=== PATIENT | male | born 1955 | race Two or more races ===

== ENCOUNTER 2022-09-30 06:13 | Day surgery (SDC) | payer OTHER | END 2022-09-30 12:50 | disposition home or self-care (01) | LOC: CIR.AMB 06:13 | PROVIDERS: ATTEND Surgery | DX: D12.2 Benign neoplasm of ascending colon (principal); K57.30 Diverticulosis of large intestine without perforation or abscess without bleeding; Z20.822 Contact with and (suspected) exposure to COVID-19 ==

== ENCOUNTER 2023-04-25 12:45 | Inpatient (IN) | payer OTHER ==
[~2023-04-25] VITALS: Ht 167.6 cm; Wt 84.4 kg
[2023-04-25] MEDS ORDERED: LIPITOR20 MG PO (15:18)
[2023-04-25] MEDS ORDERED: TOPROL XL50 M1 PO (15:19)
[2023-04-25] MEDS ORDERED: PROSCAR5 MG PO (15:19)
[2023-04-25] MEDS ORDERED: PLAVIX75 MG PO (15:19)
[2023-04-25] MEDS ORDERED: AVAPRO300 MG PO (15:19)
[2023-05-02] MEDS ORDERED: TAMSULOSIN HCL0.4 MG (07:56)
[2023-05-02] MEDS ORDERED: VASOFLEX TABLE1 EACH (07:56)
[2023-05-02] MEDS ORDERED: PANTOPRAZOLE SO40 MG (07:57)
[2023-05-02] MEDS ORDERED: FAMOTIDINE40 MG (07:57)
[2023-05-02 11:30] LABS: HEMATOCRIT 43.8 % (39.0-48.0); HEMOGLOBIN 14.3 g/dL (13-16.00); MEAN CORPUSCULAR HEMOGLOBIN 26.7 pg (27.00-32.0); MEAN CORPUSCULAR HGB CONC 32.6 g/dl (32.0-36.0); PLATELET COUNT 199 K/uL (150-450); RED BLOOD COUNT 5.34 M/uL (4.00-6.00); RED CELL DISTRIBUTION WIDTH 13.8 % (11.5-14.5)
[2023-05-02 12:08] LABS: ALBUMIN 3.6 gm/dL (3.4-5.0); CALCIUM 8.9 mg/dL (8.5-10.1); CREATININE SERUM 1.04 mg/dL (0.70-1.30); GFR 71.23; MAGNESIUM 1.9 mg/dL (1.8-2.4); PHOSPHOROUS 2.7 mg/dL (2.5-4.9); POTASSIUM 4.83 mEq/L (3.5-5.1)
[2023-05-03 06:27] LABS: HEMATOCRIT 41.6 % (39.0-48.0); HEMOGLOBIN 13.9 g/dL (13-16.00); MEAN CELL VOLUME 80.4 fL (80.0-100.00); MEAN CORPUSCULAR HEMOGLOBIN 26.9 pg (27.00-32.0); MEAN CORPUSCULAR HGB CONC 33.5 g/dl (32.0-36.0); PLATELET COUNT 163 K/uL (150-450); RED BLOOD COUNT 5.17 M/uL (4.00-6.00)
[2023-05-03 07:00] LABS: ALBUMIN 3.4 gm/dL (3.4-5.0); CALCIUM 9.1 mg/dL (8.5-10.1); CREATININE SERUM 1.01 mg/dL (0.70-1.30); GFR 73.68; PHOSPHOROUS 2.8 mg/dL (2.5-4.9); POTASSIUM 4.36 mEq/L (3.5-5.1)
[2023-05-04 06:42] LABS: HEMATOCRIT 36.4 % (39.0-48.0); HEMOGLOBIN 12.4 g/dL (13-16.00); MEAN CELL VOLUME 79.7 fL (80.0-100.00); MEAN CORPUSCULAR HEMOGLOBIN 27.2 pg (27.00-32.0); MEAN CORPUSCULAR HGB CONC 34.1 g/dl (32.0-36.0); PLATELET COUNT 152 K/uL (150-450); RED BLOOD COUNT 4.57 M/uL (4.00-6.00); RED CELL DISTRIBUTION WIDTH 13.7 % (11.5-14.5)
[2023-05-04 07:03] LABS: CALCIUM 8.6 mg/dL (8.5-10.1); CREATININE SERUM 0.91 mg/dL (0.70-1.30); GFR 83.1; MAGNESIUM 1.9 mg/dL (1.8-2.4); POTASSIUM 4.13 mEq/L (3.5-5.1)
[2023-05-04 08:08] LABS: PHOSPHOROUS 1.8 mg/dL (2.5-4.9)
[2023-05-04] MEDS ORDERED: TRAM1TAB98 PO (08:24)
[2023-05-04] MEDS ORDERED: HYOSCYAMINE0.125 M1 SL (08:24)
[2023-05-04] MEDS ORDERED: PEPCID AC20 MG PO (08:25)
[2023-05-04 11:23] LABS: HEMATOCRIT 39.5 % (39.0-48.0); HEMOGLOBIN 13.1 g/dL (13-16.00); MEAN CELL VOLUME 82.2 fL (80.0-100.00); MEAN CORPUSCULAR HEMOGLOBIN 27.2 pg (27.00-32.0); MEAN CORPUSCULAR HGB CONC 33.1 g/dl (32.0-36.0); PLATELET COUNT 168 K/uL (150-450); RED BLOOD COUNT 4.81 M/uL (4.00-6.00); RED CELL DISTRIBUTION WIDTH 13.4 % (11.5-14.5)
== END 2023-05-04 14:16 | disposition home or self-care (01) | DRG 331 ==
LOC: SURG 05-02 05:17 → O/R 05-02 05:17 → SURG 05-02 07:00
PROVIDERS: Internal Medicine Geriatric Medicine; ADMIT Surgery; ATTEND Surgery
PROC: 07BB4ZZ Excision of Mesenteric Lymphatic, Percutaneous Endoscopic Approach (ICD-10-PCS; 2023-05-02)
PROC: 0DTF4ZZ Resection of Right Large Intestine, Percutaneous Endoscopic Approach (ICD-10-PCS; principal; 2023-05-02 07:00)
DX: D12.2 Benign neoplasm of ascending colon (principal); R59.0 Localized enlarged lymph nodes; I25.10 Atherosclerotic heart disease of native coronary artery without angina pectoris; I11.9 Hypertensive heart disease without heart failure